=== PATIENT | female | born 1975 | race Caucasian/White ===

== ENCOUNTER → 2016-09-26 | Outpatient (CLI) | payer OTHER | LOC: LAB 07:56 | DX: E89.0 Postprocedural hypothyroidism (principal) | CPT/HCPCS: 36415; 84443 ==

== ENCOUNTER → 2016-11-06 | Outpatient (CLI) | payer OTHER | LOC: RAD 13:30 | DX: M54.5 Low back pain (principal); M47.896 Other spondylosis, lumbar region; M43.16 Spondylolisthesis, lumbar region | CPT/HCPCS: 72110 ==

== ENCOUNTER → 2016-12-30 | Outpatient (CLI) | payer OTHER ==
[~2016-12-30] VITALS: Ht 160 cm; Wt 73.5 kg
== END ==
LOC: OPSV 13:54
DX: A53.9 Syphilis, unspecified (principal)
CPT/HCPCS: 96372; J0561

== ENCOUNTER → 2020-11-25 | Outpatient (CLI) | payer OTHER ==
[~2020-11-25] MED LIST: ZITHROMAX250 MG PO
[2020-11-25 12:03] LABS: HEMOGLOBIN 13.1 gm/dl (12.3-15.3); RED BLOOD COUNT 4.56 M/UL (4.00-5.10); WHITE BLOOD COUNT 7.7 K/UL (4.5-11.0)
[2020-11-25 12:31] LABS: BUN/CREATININE RATIO 18 (0-10)
== END ==
LOC: LAB 11:25
PROVIDERS: Physician Assistant
DX: Z13.220 Encounter for screening for lipoid disorders (principal); E55.9 Vitamin D deficiency, unspecified; E89.0 Postprocedural hypothyroidism; R53.83 Other fatigue
CPT/HCPCS: 36415; 80053; 80061; 82607; 84439; 84443; 85025

== ENCOUNTER → 2021-05-22 | Outpatient (CLI) | payer OTHER ==
[~2021-05-22] MED LIST changes: +COLACE100 MG PO; +FAMOTIDINE20 MG PO; +FLONASE 0.05% N16 GM; +FLUTICASONE; +IBUPROFEN800 MG PO; +LEVOTHYROXINE100 MC2 PO; +PERCOCET 5/325 T1 EA PO; +ZYRTEC10 MG PO
[2021-05-22 11:50] LABS: HEMOGLOBIN 13.5 gm/dl (12.3-15.3); RED BLOOD COUNT 4.61 M/UL (4.00-5.10); WHITE BLOOD COUNT 7.5 K/UL (4.5-11.0)
== END ==
LOC: OPSV2 10:32
PROVIDERS: Obstetrics & Gynecology
DX: Z01.812 Encounter for preprocedural laboratory examination (principal); R10.2 Pelvic and perineal pain
CPT/HCPCS: 36415; 81001; 85025

== ENCOUNTER → 2021-05-24 | Day surgery (SDC) | payer OTHER | END | disposition home or self-care (01) | LOC: OR 09:10 | DX: N83.12 Corpus luteum cyst of left ovary (principal); N70.11 Chronic salpingitis; D25.9 Leiomyoma of uterus, unspecified; N73.6 Female pelvic peritoneal adhesions (postinfective); N83.8 Other noninflammatory disorders of ovary, fallopian tube and broad ligament; E89.0 Postprocedural hypothyroidism; E66.9 Obesity, unspecified; K21.9 Gastro-esophageal reflux disease without esophagitis; Z20.822 Contact with and (suspected) exposure to COVID-19 | CPT/HCPCS: 84703; 93005; J0690; J1100; J1885; J2001; J2250; J2405; J2704; J2710; J3010; J7120 ==

== ENCOUNTER → 2021-05-28 | Outpatient (CLI) | payer OTHER | LOC: LBRF 15:51 | DX: R31.9 Hematuria, unspecified (principal) | CPT/HCPCS: 87086 ==

== ENCOUNTER → 2021-09-11 | Outpatient (CLI) | payer OTHER | LOC: CT 13:31 | DX: R10.11 Right upper quadrant pain (principal); N39.0 Urinary tract infection, site not specified; R31.9 Hematuria, unspecified; N26.1 Atrophy of kidney (terminal); N83.202 Unspecified ovarian cyst, left side; N83.201 Unspecified ovarian cyst, right side; D25.9 Leiomyoma of uterus, unspecified; Z90.49 Acquired absence of other specified parts of digestive tract | CPT/HCPCS: Q9967 ==

== ENCOUNTER → 2021-12-26 | Outpatient (CLI) | payer OTHER | LOC: NM 13:38 | DX: N13.1 Hydronephrosis with ureteral stricture, not elsewhere classified (principal); N32.89 Other specified disorders of bladder; N26.1 Atrophy of kidney (terminal) | CPT/HCPCS: 78708; A9562; J1940 ==